=== PATIENT | female | born 1945 | race Caucasian/White ===

== ENCOUNTER 2019-10-25 08:30 | Emergency (ER) | payer MEDICARE, OTHER ==
--- NOTE | 2019-10-25 08:56 | EDM.PDOC ---
ED HPI GENERAL MEDICAL PROBLEM - General Chief Complaint: Chest Pain Stated Complaint: RAPID HEART RATE Time Seen by Provider: 10/25/19 08:35 Source of Information: Reports: Patient, EMS History Limitations: Reports: No Limitations - History of Present Illness INITIAL COMMENTS - FREE TEXT/NARRATIVE: 74-year-old female presents to ED [facility] via EMS with onset of chest pressure around midnight. Unable to sleep. Pressure persisted throughout the night into the morning. It was associated with nausea, shortness of breath and diaphoresis. By time of EMS arrival onsite patient was complaining of chest pain and was tachycardic. She was administered nitroglycerin and aspirin on scene. Her pain resolved and was resolved prior to arrival. Patient endorses increasing chest symptoms since early summer. These were worse with activities such as bending over or gardening. She saw her primary care doctor last month was diagnosed with a new murmur for which she had an echocardiogram. Those results are not available to me at this time. She saw shelter advocate shortly after this who started her on a statin and metoprolol. Angiogram was discussed but had not yet been performed. Episode of chest pressure described above is the worst the patient has experienced per her report. At time of this history patient denies any chest pain, shortness of breath, nausea. Onset: Today Onset Date: 10/25/19 Onset Time: 00:00 Duration: Constant Location: Reports: Chest, Upper Extremity, Left Quality: Reports: Pressure Severity: Severe Improves with: Reports: None Worsens with: Reports: None Context: Reports: Other (resting) Associated Symptoms: Reports: Diaphoresis, Nausea/Vomiting, Shortness of Breath Treatments [employer]: Reports: Aspirin, Nitroglycerin - Related Data Allergies Allergy/AdvReac Type Severity Reaction Status Date / Time Penicillins AdvReac Swelling Verified 10/25/19 08:37 Home Meds: Home Meds Acetaminophen [Tylenol] 325 mg PO ASDIRECTED 10/25/19 [History] Aspirin [Halfprin] 81 mg PO DAILY 10/25/19 [History] Ibuprofen 200 mg PO ASDIRECTED 10/25/19 [History] Irbesartan 150 mg PO DAILY 10/25/19 [History] Metoprolol Succinate [Toprol XL] 25 mg PO DAILY 10/25/19 [History] Naproxen Sodium [Aleve] 220 mg PO ASDIRECTED PRN 10/25/19 [History] Triamcinolone Acetonide [Triamcinolone Acetonide 0.1% Crm] 1 applic TOP ASDIRECTED 10/25/19 [History] metroNIDAZOLE [metroNIDAZOLE 0.75% Cream] 1 applic TOP ASDIRECTED 10/25/19 [History] Past Medical History HEENT History: Reports: Impaired Vision Cardiovascular History: Reports: Angina, Hypertension Gastrointestinal History: Reports: GERD Genitourinary History: Reports: None 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: Musculoskeletal History: Reports: Back Pain, Chronic - Past Surgical History Head Surgeries/Procedures: Reports: None HEENT Surgical History: Reports: Cataract Surgery Cardiovascular Surgical History: Reports: None GI Surgical History: Reports: Cholecystectomy Female Surgical History: Reports: Salpingo-Oophorectomy Musculoskeletal Surgical History: Reports: None Dermatological Surgical History: Reports: None Social & Family History - Tobacco Use Smoking Status *Q: Former Smoker Used Tobacco, but Quit: Yes Month/Year Tobacco Last Used: 1987 Second Hand Smoke Exposure: No - Caffeine Use Caffeine Use: Reports: Coffee - Recreational Drug Use Recreational Drug Use: No ED ROS GENERAL - Review of Systems Review Of Systems: Comprehensive ROS is negative, except as noted in HPI. ED EXAM, GENERAL - Physical Exam Exam: See Below Exam Limited By: No Limitations General Appearance: Alert, WD/WN Throat/Mouth: Normal Inspection, Normal Lips, Normal Teeth, Normal Gums, Normal Oropharynx, Normal Voice, No Airway Compromise Head: Atraumatic, Normocephalic Neck: Normal Inspection, Supple, Non-Tender, Full Range of Motion Respiratory/Chest: No Respiratory Distress, Lungs Clear, Normal Breath Sounds, Chest Non-Tender Cardiovascular: Normal Peripheral Pulses, Regular Rate, Rhythm, No Edema, No JVD, Systolic Murmur Peripheral Pulses: 2+: Radial (L), Radial (R) GI/Abdominal: Normal Bowel Sounds, Soft, Non-Tender, No Organomegaly, No Distention, No Abnormal Bruit, No Mass Back Exam: Normal Inspection, Full Range of Motion, NT Extremities: Normal Inspection, Normal Range of Motion, Non-Tender, Normal Capillary Refill, No Pedal Edema Neurological: Alert, Oriented, CN II-XII Intact, Normal Cognition, Normal Gait, Normal Reflexes, No Motor/Sensory Deficits Psychiatric: Normal Affect, Normal Mood Skin Exam: Warm, Dry, Intact, Normal Color, No Rash EKG INTERPRETATION EKG Date: 10/25/19 Time: 08:27 Rhythm: NSR Rate (Beats/Min): 84 [place]: LAD-Left [place] Deviation QRS: Normal ST-T: Elevated (anterior likely LVH) QT: Normal Comparison: NA - No Prior EKG Course - Vital Signs Last Recorded V/S: Last Vital Signs Temp 96.6 F L 10/25/19 08:45 Pulse 67 10/25/19 10:59 Resp 20 10/25/19 10:59 BP 111/60 10/25/19 10:59 Pulse Ox 98 10/25/19 10:59 - Orders/Labs/Meds Orders: Active Orders 24 hr Category Date Time Status EKG 12 Lead [EK] Routine Ther 10/25/19 09:56 Ordered EKG 12 Lead [EK] Stat Ther 10/25/19 08:38 Ordered Labs: Laboratory Tests 10/25/19 10/25/19 10/25/19 Range/Units 08:30 08:30 09:45 WBC 11.2 H (4.5-11.0) K/uL RBC 4.26 (3.30-5.50) M/uL Hgb 13.2 (12.0-15.0) g/dL Hct 42.1 (36.0-48.0) % MCV 99 H (80-98) fL MCH 31 (27-31) pg MCHC 31 L (32-36) % Plt Count 202 (150-400) K/uL Neut % (Auto) 85 H (36-66) % Lymph % (Auto) 12 L (24-44) % [place] % (Auto) 3 (2-6) % Eos % (Auto) 0 L (2-4) % Baso % (Auto) 0 (0-1) % Sodium 145 (140-148) mmol/L Potassium 4.4 (3.6-5.2) mmol/L Chloride 108 (100-108) mmol/L Carbon Dioxide 26 (21-32) mmol/L Anion Gap 10.8 (5.0-14.0) mmol/L BUN 9 (7-18) mg/dL Creatinine 1.1 H (0.6-1.0) mg/dL Est Cr Clr Drug Dosing 31.25 mL/min Estimated GFR (MDRD) 48 L (>60) Glucose 156 H (74-106) mg/dL Calcium 9.2 (8.5-10.1) mg/dL Troponin I 0.838 H* (0.000-0.056) ng/mL SARS Virus RNA (PCR) Negative (NEGATIVE) Meds: Medications Discontinued Medications Generic Name Dose Route Start Last Admin Trade Name Freq PRN Reason Stop Dose Admin Metoprolol Tartrate 5 mg/ 55 mls @ 100 mls/hr 10/25/19 09:23 10/25/19 09:40 Sodium Chloride IV 10/25/19 09:55 100 mls/hr ONETIME ONE Administration Heparin Sodium/Dextrose 25,000 units in 500 mls @ 14.696 mls/hr 10/25/19 09:45 10/25/19 09:53 Heparin 25,000 Units In D5w 500 Ml IV 12 units/kg/hr TITRATE AYO 14.696 mls/hr Administration Protocol 12 UNITS/KG/HR Nitroglycerin 0.1 mg 10/25/19 09:21 10/25/19 09:39 Nitro-Dur 0.1 Mg/Hr TRDERM 10/25/19 09:22 0.1 mg ONETIME ONE Administration - Radiology Interpretation Free Text/Narrative:: Chest x-ray: Normal heart size and vasculature. Normal mediastinum. No infiltrate or mass. No pleural effusion. No pneumothorax. Impression: Lungs are clear Report for radiology Departure - Departure Time of Disposition: 10:00 Disposition: DC/Tfer to Other 70 Reason for Transfer *Q: Primary PCI Indicated Condition: Good Clinical Impression: NSTEMI (non-ST elevated myocardial infarction) Referrals: PCP,None [Primary Care Provider] - Forms: ED Department Discharge Sepsis Event Note (ED) - Evaluation Sepsis Screening Result: No Definite Risk - Focused Exam Vital Signs: Vital Signs Temp Pulse Pulse Resp BP BP Pulse Ox 10/25/19 10:59 67 20 111/60 98 10/25/19 10:49 113/62 10/25/19 10:38 63 13 117/55 L 95 10/25/19 10:28 64 19 108/52 L 94 L 10/25/19 10:18 64 15 123/63 95 10/25/19 10:08 66 20 121/58 L 94 L 10/25/19 09:58 64 10 L 118/58 L 95 10/25/19 09:48 68 14 112/61 95 10/25/19 09:40 75 116/55 L 10/25/19 09:38 73 18 116/55 L 95 10/25/19 09:28 86 16 134/60 94 L 10/25/19 09:18 77 13 130/50 L 96 10/25/19 09:09 79 14 132/58 L 94 L 10/25/19 08:58 76 19 122/56 L 98 10/25/19 08:48 74 15 120/55 L 97 10/25/19 08:45 96.6 F L 84 18 131/66 99 10/25/19 08:38 80 18 134/59 L 98 10/25/19 08:35 96.6 F L 84 18 131/66 99 ED Communication - Discussed Case With (1) Discussed Case With (1): Other (Food Store[employer] Clerk Dr. Chowdary) Date: 10/25/19 Time Called: 09:00 - Discussed Case With (2) Discussed Case With (2): Admitting Provider Person/s Notified (3): Dr. Elliott Date: 10/25/19 Time Called: 09:30 - My Orders Last 24 Hours: My Active Orders 10/25/19 08:38 EKG 12 Lead [EK] Stat 10/25/19 09:56 EKG 12 Lead [EK] Routine - Assessment/Plan Admission H&P: Please use this note as an admission H&P Last 24 Hours: My Active Orders 10/25/19 08:38 EKG 12 Lead [EK] Stat 10/25/19 09:56 EKG 12 Lead [EK] Routine Assessment:: This is a 74-year-old female who presents with classic signs and symptoms of cardiac related chest pain and found to be experiencing a acute non-ST elevation ND. She is currently pain-free and hemodynamically stable. She has a slightly elevated initial troponin. Her chest x-ray is unremarkable. I have discussed the case with the shelter advocate and admitting physician and will plan transfer to [facility] for admission and probable cardiac catheterization. She has been started on the IV heparin drip with bolus. She received full dose aspirin prior to arrival to this hospital this morning. She has been placed on a nitro patch and IV metoprolol has been given. I discussed the plan of care with the patient and her family including her daughter who is a family practitioner. They agree with this plan of care. They understand should patient's symptoms worsen that she may warrant diversion directly to the [facility]. Medically stable at the time of transfer.
[2019-10-25] MEDS ORDERED: Nitroglycerin 0.1 MG/HR Transdermal Patch TRDERM ONE (09:21)
[2019-10-25] MEDS ORDERED: Metoprolol Tartrate 5 MG in Sodium Chloride 0.9% 50 ML IV ONE (09:23)
[2019-10-25] MEDS ORDERED: Heparin Sodium/D5W 25,000 UNITS/500 ML BAG IV SCH (09:45)
--- NOTE | 2019-10-25 10:01 | CRLCR ---
INDICATION: chest pain INDICATION: Chest pain. TECHNIQUE: Chest 1 view. COMPARISON: None FINDINGS: Cardiovascular and mediastinum: Heart size and vasculature are normal in caliber and appearance. Mediastinum is within normal limits. Lungs and pleural space: Lungs are clear. No sign of infiltrate or mass. No sign of pleural effusion. No pneumothorax. Bones and soft tissues: No significant findings. IMPRESSION: Lungs are clear. Dictated by Wilmar Garcia MD @ 10/25/2019 9:59:20 AM Dictated by: Wilmar Garcia MD @ 10/25/2019 09:59:31 (Electronically Signed)
== END 2019-10-25 11:28 | disposition other institution (70) ==
LOC: JP.ED 08:30
DX: I21.4 Non-ST elevation (NSTEMI) myocardial infarction (principal); I10 Essential (primary) hypertension; Z20.828 Contact with and (suspected) exposure to other viral communicable diseases; Z87.891 Personal history of nicotine dependence; Z88.0 Allergy status to penicillin; Z79.82 Long term (current) use of aspirin
CPT/HCPCS: 36415; 71045; 80048; 84484; 85025; 93005; 96365; 96366; 96368; 99285; A9270; J1644; J3490; J7050; U0002; 93010

== ENCOUNTER 2024-10-22 08:57 | Emergency (ER) | payer MEDICARE, OTHER ==
[2024-10-22 10:28] LABS: BASOPHILS ABSOLUTE AUTO 0.07 K/uL (0.00-0.10); BASOPHILS PERCENT AUTO 0.9 % (0.1-1.3); EOSINOPHILS ABSOLUTE AUTO 0.08 K/uL (0.00-0.40); EOSINOPHILS PERCENT AUTO 1.1 % (0.0-5.4); IMMATURE GRAN PERCENT AUTO 0.3 % (0.0-0.7); LYMPHOCYTES ABSOLUTE AUTO 1.06 K/uL (0.8-3.3); LYMPHOCYTES PERCENT AUTO 14.3 % (11.4-47.7); MONOCYTES ABSOLUTE AUTO 0.47 K/uL (0.20-0.90); MONOCYTES PERCENT AUTO 6.4 % (3.3-12.6); NEUTROPHILS ABSOLUTE AUTO 5.70 K/uL (1.0-7.6); NEUTROPHILS PERCENT AUTO 77.0 % (40.0-78.1); PLATELET COUNT,PLT 165 K/uL (130-375); RED BLOOD CELL COUNT 3.54 M/uL (3.77-5.24); WHITE BLOOD CELL COUNT,WBC 7.4 K/uL (3.2-11.0)
[2024-10-22 10:30] LABS: IMMATURE GRAN ABSOLUTE AUTO 0.02 K/uL (0.00-0.23)
[2024-10-22 10:46] LABS: A/G RATIO 1.2 (1.2-2.2); ALANINE AMINOTRANSFERASE,ALT 22 U/L (12-78); ASPARTATE AMNIOTRANSFERASE,AST 49 U/L (15-37); BILIRUBIN TOTAL 0.6 mg/dL (0.2-1.0); BLOOD UREA NITROGEN,BUN 5 mg/dL (7-18); CARBON DIOXIDE,CO2 28 mmol/L (21-32); CHLORIDE,CL 107 mmol/L (100-108); CREATININE 0.6 mg/dL (0.6-1.0); EST CRCL DRUG DOSING (CG) 52.82 mL/min; ESTIMATED GFR 90 mL/min (>60); GLUCOSE RANDOM 67 mg/dL (74-106); POTASSIUM,K 4.3 mmol/L (3.6-5.2); PROTEIN TOTAL,TP 6.3 g/dL (6.4-8.2); SODIUM,NA 144 mmol/L (140-148)
[2024-10-22 13:13] LABS: APPEARANCE,URINE SLIGHTLY CLOUDY (CLEAR); GLUCOSE,URINE NEGATIVE (NEGATIVE); OCCULT BLOOD,URINE NEGATIVE (NEGATIVE)
[2024-10-22 13:14] LABS: SQUAMOUS EPITHELIAL CELLS,UR FEW /HPF; UROTHELIAL CELLS,URINE NOT SEEN /HPF
== END 2024-10-22 13:39 | disposition home or self-care (01) ==
LOC: JP.ED 08:57
DX: S22.31XA Fracture of one rib, right side, initial encounter for closed fracture (principal); I10 Essential (primary) hypertension; Z79.899 Other long term (current) drug therapy; Z79.1 Long term (current) use of non-steroidal anti-inflammatories (NSAID); Z88.0 Allergy status to penicillin; Z90.49 Acquired absence of other specified parts of digestive tract; W19.XXXA Unspecified fall, initial encounter
CPT/HCPCS: 36415; 71046; 71046-26; 80053; 81001; 85025; 99283

== ENCOUNTER 2024-10-31 04:04 | Emergency (ER) | payer MEDICARE, OTHER ==
[2024-10-31 04:58] LABS: BASOPHILS ABSOLUTE AUTO 0.03 K/uL (0.00-0.10); BASOPHILS PERCENT AUTO 0.6 % (0.1-1.3); EOSINOPHILS ABSOLUTE AUTO 0.02 K/uL (0.00-0.40); EOSINOPHILS PERCENT AUTO 0.4 % (0.0-5.4); IMMATURE GRAN ABSOLUTE AUTO 0.02 K/uL (0.00-0.23); IMMATURE GRAN PERCENT AUTO 0.4 % (0.0-0.7); LYMPHOCYTES ABSOLUTE AUTO 0.94 K/uL (0.8-3.3); LYMPHOCYTES PERCENT AUTO 20.0 % (11.4-47.7); MONOCYTES ABSOLUTE AUTO 0.22 K/uL (0.20-0.90); MONOCYTES PERCENT AUTO 4.7 % (3.3-12.6); NEUTROPHILS ABSOLUTE AUTO 3.47 K/uL (1.0-7.6); NEUTROPHILS PERCENT AUTO 73.9 % (40.0-78.1); PLATELET COUNT,PLT 170 K/uL (130-375); RED BLOOD CELL COUNT 3.69 M/uL (3.77-5.24); WHITE BLOOD CELL COUNT,WBC 4.7 K/uL (3.2-11.0)
[2024-10-31 05:23] LABS: A/G RATIO 1.2 (1.2-2.2); ALANINE AMINOTRANSFERASE,ALT 24 U/L (12-78); ASPARTATE AMNIOTRANSFERASE,AST 53 U/L (15-37); BILIRUBIN TOTAL 0.5 mg/dL (0.2-1.0); BLOOD UREA NITROGEN,BUN 6 mg/dL (7-18); CARBON DIOXIDE,CO2 28 mmol/L (21-32); CHLORIDE,CL 108 mmol/L (100-108); CREATININE 0.6 mg/dL (0.6-1.0); EST CRCL DRUG DOSING (CG) 52.82 mL/min; ESTIMATED GFR 90 mL/min (>60); GLUCOSE RANDOM 72 mg/dL (74-106); POTASSIUM,K 3.6 mmol/L (3.6-5.2); PROTEIN TOTAL,TP 6.4 g/dL (6.4-8.2); SODIUM,NA 145 mmol/L (140-148)
[2024-10-31 05:33] LABS: T4 FREE 1.21 ng/dL (0.76-1.46); TSH ULTRASENSITIVE 0.211 uIU/mL (0.358-3.740)
[2024-10-31 05:37] LABS: TROPONIN I HIGH SENSITIVITY 71.4 pg/mL (<=60.3)
[2024-10-31] MEDS ORDERED: Iopamidol 755 Mg/ML 100 ML Bottle IV SCH (10:45)
== END 2024-10-31 12:55 | disposition home or self-care (01) ==
LOC: JP.ED 04:04
DX: I48.91 Unspecified atrial fibrillation (principal); R79.89 Other specified abnormal findings of blood chemistry; I10 Essential (primary) hypertension; Z90.49 Acquired absence of other specified parts of digestive tract; Z88.0 Allergy status to penicillin; Z79.01 Long term (current) use of anticoagulants; Z79.899 Other long term (current) drug therapy
CPT/HCPCS: 36415; 71046; 71046-26; 71275; 71275-26; 80053; 84439; 84443; 84484; 85025; 93005; 93010; 99284; 99285